=== PATIENT | male | born 1985 | race Caucasian/White ===

== ENCOUNTER 2019-07-19 18:43 | Emergency (ER) | payer MEDICAID ==
[~2019-07-19] VITALS: Ht 170.2 cm; Wt 57.6 kg
[2019-07-19 19:03] VITALS: Ht 170.2 cm; Wt 57.6 kg
[2019-07-19 20:22] LABS: UA SPECIFIC GRAVITY 1.025 (1.005-1.035); microscopic required? YES; urine erythrocyte TRACE (NEGATIVE)
[2019-07-19 22:17] VITALS: BP 122/67
== END 2019-07-19 22:17 | disposition home or self-care (01) ==
LOC: ED 18:43
PROVIDERS: Emergency Medicine
DX: N50.811 Right testicular pain (principal); N39.0 Urinary tract infection, site not specified; I86.1 Scrotal varices
CPT/HCPCS: 87491; 87591; 99406; J0696